=== PATIENT | male | born 1960 | race Caucasian/White ===

== ENCOUNTER 2023-03-19 19:23 | Emergency (ER) | payer OTHER ==
[~2023-03-19] VITALS: Ht 182.9 cm; Wt 86.2 kg
[2023-03-19 19:46] VITALS: BP 147/105
[2023-03-19] MEDS ORDERED: LISI20 PO (20:01)
[2023-03-19] MEDS ORDERED: Percocet 5-3251 EACH PO (20:39)
== END 2023-03-19 21:01 | disposition home or self-care (01) ==
LOC: ER 19:23
DX: G89.18 Other acute postprocedural pain (principal); M54.50 Low back pain, unspecified; Z79.899 Other long term (current) drug therapy
CPT/HCPCS: 99282; A9270

== ENCOUNTER → 2023-04-03 | Outpatient (CLI) | payer OTHER ==
[~2023-04-03] MED LIST: LISI20 PO; Percocet 5-3251 EACH PO
== END ==
LOC: LAB SHORT 12:06 → LAB 12:06
DX: R30.0 Dysuria (principal)
CPT/HCPCS: 87086

== ENCOUNTER → 2025-05-31 | Outpatient (CLI) | payer MEDICARE, OTHER ==
[2025-05-31 12:59] LABS: BODY FLUID RBC 0.161 M/mm3 (0-0)
[2025-05-31 13:00] LABS: RBC Count, Synovial Fluid 161000 /mm3 (0-0); WBC Count, Synovial Fluid 673 /mm3 (0-180)
[2025-05-31 13:01] LABS: Appearance, Synovial Fluid Cloudy (Clear); Color, Synovial Fluid Red (None-P Yel)
[2025-05-31 13:40] LABS: Eos, Synovial Fluid 1 % (0-2); Lymphs, Synovial Fluid 15 % (0-15); Monocytes/Macrophages, Synovia 62 % (0-65); Neutrophils, Synovial Fluid 22 % (0-24)
== END ==
LOC: LAB 12:34 → LAB SHORT 12:34
PROVIDERS: Family Medicine
DX: M70.22 Olecranon bursitis, left elbow (principal)
CPT/HCPCS: 87070; 87075; 87205; 89051; 89060